=== PATIENT | male | born 1985 | race Caucasian/White ===

== ENCOUNTER 2016-10-27 16:27 | Emergency (ER) | payer BC, OTHER ==
--- NOTE | 2016-10-27 16:39 | PDOC ---
History of Present Illness - General History Source: Patient Exam Limitations: No Limitations - History of Present Illness Initial Comments: 10/27/16 17:59 The patient is a 31 year old male, with no significant past medical history, who presents to the emergency department with 2 days of nausea, vomiting, diarrhea. The patient reports that his nausea started yesterday and so far today he has had about 20 episodes of vomiting and 5-6 episodes of diarrhea. He denies any blood present in the vomit or stool, and describes the diarrhea as watery in nature. He denies any sick contacts or recent travel, but does state that he [place] in an [place]. He denies chest pain, abdominal pain, shortness of breath, headache and dizziness. He denies fever, chills, and constipation. He denies dysuria, frequency, urgency and hematuria. Allergies: None Past surgical history: None Social history: Never smoked, does not drink <Linda Vargas - Last Filed: 10/27/16 17:59> <Trenton Washington - Last Filed: 10/27/16 18:51> - General Chief Complaint: Vomiting/Diarrhea Stated Complaint: NAUSEA, VOMITING, DIARRHEA Time Seen by Provider: 10/27/16 16:32 Past History <Linda Vargas - Last Filed: 10/27/16 17:59> - Immunization History Td Vaccination: Yes TDAP Vaccination: No Immunization Up to Date: Yes - Psycho/Social/Smoking Cessation Hx Anxiety: No Suicidal Ideation: No Smoking Status: No Smoking History: Never smoked Number of Cigarettes Smoked Daily: 0 Hx Alcohol Use: No Drug/Substance Use Hx: No Substance Use Type: None <Trenton Washington - Last Filed: 10/27/16 18:51> - Past Medical History Allergies/Adverse Reactions: Allergies Allergy/AdvReac Type Severity Reaction Status Date / Time No Known Allergies Allergy Unverified 04/25/15 10:42 Home Medications: Ambulatory Orders Ondansetron [Zofran -] 4 mg PO TID PRN #14 tablet 10/27/16 Review of Systems - Review of Systems Able to Perform ROS?: Yes Comments:: 10/27/16 17:59 CONSTITUTIONAL: No reported: Fever, Chills, Diaphoresis, Generalized Weakness, Malaise, Loss of Appetite HEENT: No reported: Rhinorrhea, Nasal Congestion, Throat Pain, Throat Swelling, Difficulty Swallowing, Mouth Swelling, Ear Pain, Eye Pain, Visual Changes CARDIOVASCULAR: No reported: Chest Pain, Syncope, Palpitations, Irregular Heart Rate, Lightheadedness, Peripheral Edema RESPIRATORY: No reported: Cough, Shortness of Breath, SOB with Exertion, Orthopnea, Wheezing , Stridor, Hemoptysis GASTROINTESTINAL: +Nausea, +Vomiting, +Diarrhea No reported: Abdominal pain, Abdominal Distension, Constipation, Melena, Hematochezia GENITOURINARY: No reported: Dysuria, Frequency, Urgency, Hesitancy, Flank Pain, Genital Pain MUSCULOSKELETAL: No reported: Myalgia, Arthralgia, Joint Swelling, Back pain, Neck Pain SKIN: No reported: Rash, Itching, Pallor HEMATOLOGIC/IMMUNOLOGIC: No reported: Easy Bleeding, Easy Bruising, Lymphadenopathy, Frequent infections ENDOCRINE: No reported: Unexplained Weight Gain, Unexplained Weight Loss, Heat Intolerance , Cold Intolerance NEUROLOGIC: No reported: Headache, Focal Weakness, Paresthesias, Vertigo, Lightheadedness, Unsteady Gait, Seizure, Mental Status Changes, Incontinence PSYCHIATRIC: No reported: Anxiety, Depression <Linda Vargas - Last Filed: 10/27/16 17:59> *Physical Exam - Vital Signs Last Vital Signs Temp Pulse Resp BP Pulse Ox 98.8 F 102 H 16 127/83 97 10/27/16 16:28 10/27/16 16:28 10/27/16 16:28 10/27/16 16:28 10/27/16 16:28 - Physical Exam Comments: 10/27/16 18:00 GENERAL: The patient is awake, alert, and fully oriented, Nontoxic - in no acute distress. HEAD: Normocephalic, atraumatic. EYES: extraocular movements intact, sclera anicteric, conjunctiva clear. ENT: +Dry mucous membranes. Normal voice NECK: Normal range of motion, No JVD LUNGS: Breath sounds equal, clear to auscultation bilaterally. No wheezes, no rhonchi, no rales. HEART: Regular rate and rhythm, normal S1 and S2 without murmur, rub or gallop. ABDOMEN: Soft, nontender, normoactive bowel sounds. No guarding, no rebound. No masses. No CVA tenderness EXTREMITIES: Normal range of motion, no edema. No clubbing or cyanosis. No cords , erythema, or tenderness. NEUROLOGICAL: No facial asymmetry, Normal speech, normal gait. PSYCH: Normal mood, normal affect. SKIN: Warm, Dry, normal turgor. <Linda Vargas - Last Filed: 10/27/16 17:59> - Vital Signs Last Vital Signs Temp Pulse Resp BP Pulse Ox 98.8 F 102 H 16 127/83 97 10/27/16 16:28 10/27/16 16:28 10/27/16 16:28 10/27/16 16:28 10/27/16 16:28 <Trenton Washington - Last Filed: 10/27/16 18:51> ED Treatment Course - LABORATORY CBC & Chemistry Diagram: 10/27/16 17:00 10/27/16 17:00 - ADDITIONAL ORDERS Additional order review: Laboratory Results 10/27/16 17:00 Sodium 135 L Potassium 4.7 Chloride 102 Carbon Dioxide 25 Anion Gap 8 BUN 17 D Creatinine 1.1 D Creat Clearance w eGFR > 60 Random Glucose 97 Calcium 9.6 Total Bilirubin 0.8 D AST 19 D ALT 18 Alkaline Phosphatase 62 D Total Protein 8.3 Albumin 4.9 10/27/16 17:00 RBC 5.73 H MCV 85.4 MCHC 34.2 RDW 12.6 MPV 8.6 Neutrophils % 81.6 Lymphocytes % 7.0 L D Monocytes % 8.7 Eosinophils % 2.0 Basophils % 0.7 - Medications Given in the ED: ED Medications Discontinued Medications Generic Name Dose Route Start Last Admin Trade Name Freq PRN Reason Stop Dose Admin Sodium Chloride 1,000 mls @ 1,000 mls/hr 10/27/16 16:44 10/27/16 17:00 Normal Saline - IV 10/27/16 17:43 1,000 mls/hr .Q1H ONE Administration Ondansetron HCl 4 mg 10/27/16 16:44 10/27/16 17:05 Zofran Injection IVPB 10/27/16 16:45 4 mg ONCE ONE Administration <Linda Vargas - Last Filed: 10/27/16 17:59> - LABORATORY CBC & Chemistry Diagram: 10/27/16 17:00 10/27/16 17:00 <Trenton Washington - Last Filed: 10/27/16 18:51> Medical Decision Making - Medical Decision Making 10/27/16 16:44 31y M presents with n/v/d for 2 days wo associated abd pain. on exam pt has mild dry mmm w/abd tenderness vuitals noted for mild tachycardia suspect age w/ dehydration will ck basic labs fluids/zofran will reassess A portion of this note was documented by scribe services under my direction. I have reviewed the details of the note, within reason, and agree with the documentation with the following case summary and management plan written by me 10/27/16 18:01 labs reviewed noted for mild leukocytosis w/o left shift lytes wnl pt feeling improved after hydration will PO challenge the pt no abd tenderness on repeat exam considered appy, but without any focal tenderness, do not suspect this is the case. discused return precautions with th epatientincluding any abdominal pain, fever/chills or persistent vomiting. suspect his sypmtoms are secondary to gastroenteritis 10/27/16 18:39 pt feeling improved able to toerate PO challenge will dc the pt with pmd fu will give rx for zofran return preautions were dsicussed I discussed the physical exam findings, ancillary test results and final diagnoses with the patient. I answered all of the patient's questions. The patient was satisfied with the care received and felt comfortable with the discharge plan and treatment plan. The patient will call their primary care physician within 24 hours to arrange follow-up and will return to the Emergency Department with any new, persistent or worsening symptoms. 10/27/16 18:40 <Trenton Washington - Last Filed: 10/27/16 18:51> *DC/Admit/Observation/Transfer - Attestations Scribe Attestion: 10/27/16 18:00 Documentation prepared by PROSPER Gutiérrez, acting as medical records secretary for Trenton Washington MD. <Linda Vargas - Last Filed: 10/27/16 17:59> - Discharge Dispostion Admit: No <Trenton Washington - Last Filed: 10/27/16 18:51> Diagnosis at time of Disposition: Gastroenteritis - Discharge Dispostion Disposition: HOME Condition at time of disposition: Improved - Prescriptions Prescriptions: Ondansetron [Zofran -] 4 mg PO TID PRN #14 tablet PRN Reason: Nausea - Referrals Referrals: [facility] [Provider Group] - Patient Instructions Printed Discharge Instructions: DI for Viral Gastroenteritis -- Adult Additional Instructions: Return to the emergency department immediately with ANY new, persistent or worsening symptoms including abdominal pain, fevers, inability to tolerate oral intake, chest pain, shortness of breath or any other concerns. Stay well hydrated. You MUST call and follow up with your doctor tomorrow. Your emergency department visit is not complete without a followup with your doctor for reevaluation. Please make sure your doctor reviews the results of your emergency evaluation. Print Language: GERMAN - Post Discharge Activity Work/School Note: Back to Work
[2016-10-27 16:41] VITALS: BP 127/83; PULSE 102; TEMP 98.8; BMI 27.1
[2016-10-27] MEDS ORDERED: SODIUM CHLORIDE 1,000 ML IV ONE ×2 (16:44→18:02)
[2016-10-27] MEDS ORDERED: ONDANSETRON 4 MG/2 ML VIAL IVPB ONE (16:44)
[2016-10-27] MEDS ORDERED: ONDANSETRON 4 MG/2 ML VIAL ONE (17:03)
[2016-10-27 17:32] LABS: BASOPHIL 0.7 % (0-2.0); MCH 29.2 pg (25.7-33.7); MCHC 34.2 g/dl (32.0-35.9); MEAN CELL VOLUME 85.4 fl (80-96); MEAN PLT VOLUME 8.6 fl (7.5-11.1); NEUTROPHILS 81.6 % (42.8-82.8); PLATELET COUNT 249 K/MM3 (134-434); RDW 12.6 % (11.9-15.9); WHITE BLOOD COUNT 11.2 K/mm3 (4.0-10.8)
[2016-10-27 17:45] LABS: ALBUMIN 4.9 g/dl (3.5-5.0); ALK PHOS 62 U/L (32-92); ANION GAP 8 (8-16); BILIRUBIN,TOTAL 0.8 mg/dl (0.2-1.0); CALCIUM 9.6 mg/dl (8.4-10.2); CO2 25 mmol/L (22-28); CREATININE 1.1 mg/dl (0.6-1.3); GLUCOSE,RANDOM 97 mg/dl (74-106); SGOT/AST 19 U/L (10-42); SGPT/ALT 18 U/L (10-40); TOT PROT 8.3 g/dl (6.4-8.3)
== END 2016-10-27 19:06 | disposition home or self-care (01) ==
LOC: FER 16:27
PROC: 3E0337Z Introduction of Electrolytic and Water Balance Substance into Peripheral Vein, Percutaneous Approach (ICD-10-PCS; principal; 2016-10-27)
PROC: 3E033GC Introduction of Other Therapeutic Substance into Peripheral Vein, Percutaneous Approach (ICD-10-PCS; 2016-10-27)
DX: K52.9 Noninfective gastroenteritis and colitis, unspecified (principal)
CPT/HCPCS: 36415; 80053; 85025; 99282-25

== ENCOUNTER 2017-08-10 02:17 | Emergency (ER) | payer BC ==
--- NOTE | 2017-08-10 02:21 | PDOC ---
History of Present Illness - General Chief Complaint: Choking Sensation Stated Complaint: FEELS SOMETHING IN HIS THROAT Time Seen by Provider: 08/10/17 02:20 - History of Present Illness Initial Comments: 08/10/17 02:45 This 32-year-old man with no significant past medical history presents with a one-day history of throat pain. He awakened yesterday with discomfort with swallowing. Throughout the day, discomfort became somewhat more severe. Patient took 1 dose of Mucinex but no other medication. Tonight, he had sensation of pressure in his throat and not being able to swallow secondary to the pain. The patient's sons, 4 and 7 years old have recently had febrile illnesses. Patient is unsure whether they had pharyngitis (viral or strep). Patient himself has never had strep pharyngitis. There has been no cough/runny nose/myalgias or gastrointestinal symptoms Past History - Past Medical History Allergies/Adverse Reactions: Allergies Allergy/AdvReac Type Severity Reaction Status Date / Time No Known Allergies Allergy Unverified 04/25/15 10:42 Home Medications: Ambulatory Orders NK [No Known Home Medication] 08/10/17 - Immunization History Td Vaccination: Yes TDAP Vaccination: No Immunization Up to Date: Yes - Suicide/Smoking/Psychosocial Hx Smoking Status: No Smoking History: Never smoked Number of Cigarettes Smoked Daily: 0 Hx Alcohol Use: No Drug/Substance Use Hx: No Substance Use Type: None Review of Systems - Review of Systems Able to Perform ROS?: Yes Comments:: 12 point review of systems is negative except for what is noted in the history of present illness *Physical Exam - Physical Exam Comments: GENERAL: Adult male, alert and oriented 3, mildly anxious but in no acute distress HEAD: Normal with no signs of trauma. EYES: PERRLA, EOMI, sclera anicteric, conjunctiva clear. ENT: Ears normal, nares patent, oropharynx moderately erythematous without exudates or edema. Moist mucous membranes. NECK: Normal range of motion, supple without JVD, or masses. Bilateral mildly tender anterior cervical lymphadenopathy LUNGS: Breath sounds equal, clear to auscultation bilaterally. No wheezes, and no crackles. HEART:Regular rate and rhythm, normal S1 and S2 without murmur, rub or gallop. SKIN: Warm, Dry, normal turgor, no rashes or lesions noted. Medical Decision Making - Medical Decision Making This otherwise healthy 32-year-old man presents with increasing throat discomfort over the last 24 hours; patient states children had febrile illness over the last several days. The patient does not have known fever or other upper respiratory symptoms. No true shortness of breath/stridor/wheezing. Patient has had no edema of the lip or tongue. Exam as noted shows erythema of the pharynx with cervical lymphadenopathy. There is no evidence of airway compromise with no edema noted on visual exam; no stridor or wheezing present. Clinical presentation most consistent with acute pharyngitis, most likely viral in origin. Patient will be given ibuprofen 600 mg now (has not had anti-inflammatory medications since onset of his symptoms). He will be given instructions to continue anti-inflammatory medications or Tylenol as needed for throat discomfort/fever. Meanwhile, he should expect to follow-up with his general doctor within the next week. He should return to the ER. Severe, persistent pain or difficulty breathing/swallowing *DC/Admit/Observation/Transfer Diagnosis at time of Disposition: Acute pharyngitis Qualifiers: Pharyngitis/tonsillitis etiology: unspecified etiology Qualified Code(s): J02.9 - Acute pharyngitis, unspecified - Discharge Dispostion Disposition: HOME Condition at time of disposition: Stable - Referrals - Patient Instructions Printed Discharge Instructions: Sore Throat Additional Instructions: Rest; drink plenty of fluids Ibuprofen/naproxen/acetaminophen as needed for pain Return or see your doctor if you have persistent high fever or see white patches in your throat Return here if you have severe difficulty breathing or swallowing - Post Discharge Activity
[2017-08-10 02:22] VITALS: BP 136/78; PULSE 67; TEMP 98.4; BMI 28.7
[2017-08-10] MEDS ORDERED: IBUPROFEN 600 MG TABLET (FP) PO ONE ×2 (02:38→02:41)
== END 2017-08-10 02:45 | disposition home or self-care (01) ==
LOC: FER 02:17
DX: J02.9 Acute pharyngitis, unspecified (principal)
CPT/HCPCS: 99282-25

== ENCOUNTER 2017-11-09 10:20 | Emergency (ER) | payer BC ==
[2017-11-09] MEDS ORDERED: ACETAMINOPHEN 325 MG TABLET (FP) PO ONE (11:01)
[2017-11-09] MEDS ORDERED: ACETAMINOPHEN 325 MG TABLET (FP) ONE (11:05)
[2017-11-09 11:08] VITALS: BP 127/64; PULSE 70; TEMP 99.3; BMI 29.4
--- NOTE | 2017-11-09 11:10 | PDOC ---
Attending Attestation - Resident Resident Name: Chapincito Wang - ED Attending Attestation I have performed the following: I have examined & evaluated the patient, The case was reviewed & discussed with the resident, I agree w/resident's findings & plan, Exceptions are as noted - HPI HPI: 32 yo M no significant PMH presents with low back pain. He states that he tripped and twisted his back yesterday. He had some pain at the time, but stated that he figured it would get better if he slept it off. This morning he woke up with worse pain. He took ibuprofen 1000mg and did not improve, so presented for evaluation. No weakness, numbness. Pain is B/L low back and does not radiate. - Physicial Exam PE: GENERAL: Awake, alert, and fully oriented, in no acute distress HEAD: No signs of trauma EYES: PERRLA, EOMI, sclera anicteric, conjunctiva clear ENT: Auricles normal inspection, hearing grossly normal, nares patent, oropharynx clear without exudates. Moist mucosa EXTREMITIES: Normal range of motion, no edema. No clubbing or cyanosis. No cords, erythema, or tenderness NEUROLOGICAL: Cranial nerves II through XII grossly intact. Normal speech, normal gait SKIN: Warm, Dry, normal turgor, no rashes or lesions noted. SPINE: No midline tenderness. +Soft tissue tenderness to B/L lumbar paraspinal areas. No stepoffs. No CVAT. - Medical Decision Making Pt with lumbar strain due to twisting injury. No signs of bony injury, no imaging indicated at this time. Recommended capsaicin patches, ibuprofen ( however, counseled him NOT to take large doses as with this morning), muscle relaxer, and warm compresses. Stable for DC home.
--- NOTE | 2017-11-09 11:11 | PDOC ---
History of Present Illness - General Chief Complaint: Back Pain Stated Complaint: BACK PAIN Time Seen by Provider: 11/09/17 10:57 History Source: Patient Exam Limitations: No Limitations - History of Present Illness Initial Comments: 11/09/17 11:06 Patient is a 32M with no significant medical history here today complaining of back pain that started last night after tripping and twisting his back. Denies falling, denies head trauma, denies LOC. Denies fevers, chills, nausea, vomiting. Denies IVDU. Denies urinary incontinence/retention, denies saddle anesthesia. Pain is located mostly on the lower left aspect of his back. Past History - Past Medical History Allergies/Adverse Reactions: Allergies Allergy/AdvReac Type Severity Reaction Status Date / Time No Known Allergies Allergy Verified 11/09/17 10:55 Home Medications: Ambulatory Orders Methocarbamol [Robaxin -] 500 mg PO TID #21 tablet 11/09/17 COPD: No - Immunization History Td Vaccination: Yes TDAP Vaccination: No Immunization Up to Date: Yes - Suicide/Smoking/Psychosocial Hx Smoking Status: No Smoking History: Never smoked Number of Cigarettes Smoked Daily: 0 Hx Alcohol Use: No Drug/Substance Use Hx: No Substance Use Type: None Review of Systems - Review of Systems Comments:: 11/09/17 11:08 GENERAL/CONSTITUTIONAL: No fever or chills. No weakness. HEAD, EYES, EARS, NOSE AND THROAT: No change in vision. No sore throat. CARDIOVASCULAR: No chest pain or shortness of breath RESPIRATORY: No cough, wheezing, or hemoptysis. GASTROINTESTINAL: No nausea, vomiting, diarrhea or constipation. GENITOURINARY: No dysuria, frequency, or change in urination. MUSCULOSKELETAL: No joint or muscle swelling or pain. No neck pain. +back pain. SKIN: No rash NEUROLOGIC: No headache, vertigo, loss of consciousness, or change in strength/ sensation. ENDOCRINE: No increased thirst. No abnormal weight change HEMATOLOGIC/LYMPHATIC: No anemia, easy bleeding, or history of blood clots. ALLERGIC/IMMUNOLOGIC: No hives or skin allergy. *Physical Exam - Vital Signs Last Vital Signs Temp Pulse Resp BP Pulse Ox 99.3 F 70 16 127/64 98 11/09/17 10:54 11/09/17 10:54 11/09/17 10:54 11/09/17 10:54 11/09/17 10:54 - Physical Exam Comments: 11/09/17 11:08 GENERAL: Awake, alert, and fully oriented, in no acute distress BACK: +left sided lower back tenderness, no midline tenderness, no signs of trauma HEAD: No signs of trauma, normocephalic, atraumatic EYES: PERRLA, EOMI, sclera anicteric, conjunctiva clear ENT: Auricles normal inspection, hearing grossly normal, nares patent, oropharynx clear without exudates. Moist mucosa NECK: Normal ROM, supple, no lymphadenopathy, JVD, or masses LUNGS: No distress, speaks full sentences, clear to auscultation bilaterally HEART: Regular rate and rhythm, normal S1 and S2, no murmurs, rubs or gallops, peripheral pulses normal and equal bilaterally. ABDOMEN: Soft, nontender, normoactive bowel sounds. No guarding, no rebound. No masses EXTREMITIES: Normal inspection, Normal range of motion, no edema. No clubbing or cyanosis. NEUROLOGICAL: Cranial nerves II through XII grossly intact. Normal speech, normal gait, no focal sensorimotor deficits SKIN: Warm, Dry, normal turgor, no rashes or lesions noted. Medical Decision Making - Medical Decision Making 11/09/17 11:09 Patient is a 32M here with back pain. Requesting work note, vital signs normal and stable, no red flags. Patient took 1000mg of ibuprofen. Instructed on proper dosing of NSAIDs. Given tylenol. Will prescribe robaxin for home. *DC/Admit/Observation/Transfer Diagnosis at time of Disposition: Back pain - Discharge Dispostion Disposition: HOME Condition at time of disposition: Good Decision to Admit order: No - Prescriptions Prescriptions: Methocarbamol [Robaxin -] 500 mg PO TID #21 tablet - Referrals Referrals: Mauro Cortes [Primary Care Provider] - - Patient Instructions - Post Discharge Activity Forms/Work/School Notes: Back to Work
== END 2017-11-09 11:51 | disposition home or self-care (01) ==
LOC: FER 10:20
DX: M54.5 Low back pain (principal); W18.40XA Slipping, tripping and stumbling without falling, unspecified, initial encounter; Y93.9 Activity, unspecified; Y92.9 Unspecified place or not applicable
CPT/HCPCS: 99282-25

== ENCOUNTER 2019-05-23 03:49 | Emergency (ER) | payer BC ==
--- NOTE | 2019-05-23 03:54 | PDOC ---
History of Present Illness - General Chief Complaint: Injury Stated Complaint: RING STUCK ON FINGER Time Seen by Provider: 05/23/19 03:52 History Source: Patient Exam Limitations: No Limitations - History of Present Illness Initial Comments: 05/23/19 04:06 This is a 33-year-old male who comes in complaining that his ring is stuck on his finger and his finger is swollen. Patient denies any trauma. Or infection of the finger. Patient denies any other complaints. Allergies: as per nursing notes Past Medical History: none Social history: Lives with family. No smoking. No alcohol. No illicit drugs. Surgical history: None General: No fevers or chills, no weakness, no weight loss HEENT: No change in vision. No sore throat,. No ear pain CardioVascular: no chest discomfort. No shortness of breath Respiratory:No cough, or wheezing. Gastrointestinal: no nausea, vomiting, diarrhea or constipation, No rectal bleeding Genitourinary: No dysuria, hematuria, or frequency Musculoskeletal: Ring finger swollen Neurologic: No headache, vertigo, dizziness or loss of consciousness Psychiatric: nor depression Skin: No rashes or easy bruising Endocrine: no increased thirst or abnormal weight change Allergic: no skin or latex allergy All other systems reviewed and normal GENERAL: The patient is awake, alert, and fully oriented, in no acute distress. HEAD: Normal with no signs of trauma. EYES: Pupils equal, round and reactive to light, extraocular movements intact, sclera anicteric, conjunctiva clear. EXTREMITIES: Finger is mildly swollen and ring is unable to be removed. NEUROLOGICAL: Normal speech, normal gait. PSYCH: Normal mood, normal affect. SKIN: Warm, Dry, normal turgor, no rashes or lesions noted. Ring was cut off without difficulty and patient discharged Past History - Past Medical History Allergies/Adverse Reactions: Allergies Allergy/AdvReac Type Severity Reaction Status Date / Time No Known Allergies Allergy Verified 11/09/17 10:55 Home Medications: Ambulatory Orders NK [No Known Home Medication] 05/23/19 COPD: No - Immunization History Td Vaccination: Yes TDAP Vaccination: No Immunization Up to Date: Yes - Psycho Social/Smoking Cessation Hx Smoking Status: No Smoking History: Never smoked Number of Cigarettes Smoked Daily: 0 Hx Alcohol Use: No Drug/Substance Use Hx: No Substance Use Type: None Trauma Specific PMHX - Complaint Specific PMHX Back Injury: No Neck Injury: No Discharge - Discharge Information Problems reviewed: Yes Clinical Impression/Diagnosis: Foreign body finger Condition: Stable Disposition: HOME - Admission No - Follow up/Referral - Patient Discharge Instructions Additional Instructions: Return to the emergency department immediately with ANY new, persistent or worsening symptoms. Continue any medications as previously prescribed by your physician. You should follow up with your primary doctor as soon as possible regarding today's emergency department visit. . Please make sure your doctor reviews the results of your emergency evaluation. Thank you for coming to the Emergency Department today for your care. It was a pleasure to see you today. Please note that your evaluation is INCOMPLETE until you follow-up with your doctor. - Post Discharge Activity
[2019-05-23 03:55] VITALS: BP 126/67; PULSE 90; TEMP 98.4; BMI 25.5
== END 2019-05-23 03:56 | disposition home or self-care (01) ==
LOC: FER 03:49
DX: S60.459A Superficial foreign body of unspecified finger, initial encounter (principal)
CPT/HCPCS: 99282-25

== ENCOUNTER 2020-05-04 11:53 | Emergency (ER) | payer OTHER, BC ==
[2020-05-04 12:00] VITALS: TEMP 98.4; BMI 28.7
[2020-05-04] MEDS ORDERED: ACETAMINOPHEN 500 MG TABLET (FP) PO ONE (12:23)
[2020-05-04] MEDS ORDERED: ACETAMINOPHEN 325 MG TABLET (FP) ONE (12:28)
[2020-05-04] MEDS ORDERED: KETOROLAC TROMETHAMINE 60 MG/2 ML VIAL IM ONE (14:27)
[2020-05-04] MEDS ORDERED: CYCLOBENZAPRINE HCL 10 MG TABLET (FP) ONE (14:47)
[2020-05-04] MEDS ORDERED: KETOROLAC TROMETHAMINE 60 MG/2 ML VIAL ONE (14:48)
[2020-05-04] MEDS ORDERED: oxyCODONE HCL 5 MG TABLET PO ONE (15:58)
[2020-05-04] MEDS ORDERED: CYCLOBENZAPRINE HCL 5 MG TABLET PO ONE (16:13)
[2020-05-04] MEDS ORDERED: oxyCODONE HCL 5 MG TABLET ONE (16:28)
[2020-05-04 17:42] VITALS: BP 124/86; PULSE 76
[2020-05-05] MEDS ORDERED: CYCLOBENZAPRINE HCL 5 MG TABLET PO ONE (14:28)
== END 2020-05-04 18:57 | disposition home or self-care (01) ==
LOC: FER 11:53
PROC: 3E0233Z Introduction of Anti-inflammatory into Muscle, Percutaneous Approach (ICD-10-PCS; principal; 2020-05-04)
DX: M79.601 Pain in right arm (principal); M25.511 Pain in right shoulder; M25.561 Pain in right knee
CPT/HCPCS: 71101-TC-RT-FY; 73030-TC-LT-FY; 73030-TC-RT-FY; 73060-TC-RT-FY; 73070-TC-RT-FY; 73090-TC-RT-FY; 73110-TC-RT-FY; 73130-TC-RT-FY; 73200-TC-RT; 73562-TC-RT-FY; 99285-25

== ENCOUNTER 2021-09-04 19:44 | Emergency (ER) | payer BC ==
[2021-09-04 19:53] VITALS: BP 128/77; TEMP 99.3; BMI 27.8
[2021-09-04] MEDS ORDERED: ACETAMINOPHEN 1000 MG/100 ML BAG IVPB ONE (20:26)
[2021-09-04] MEDS ORDERED: SODIUM CHLORIDE 1,000 ML IV STA (20:26)
[2021-09-04] MEDS ORDERED: ACETAMINOPHEN INJECTION 100 ML IVPB ONE (20:39)
[2021-09-04 20:42] LABS: HEMATOCRIT 43.2 % (35.4-49); HEMOGLOBIN 15.4 G/dL (11.7-16.9); MCH 30.4 pg (25.7-33.7); MCHC 35.6 g/dl (32.0-35.9); MEAN CELL VOLUME 85.4 fl (80-96); MEAN PLT VOLUME 8.5 fl (7.5-11.1); PLATELET COUNT 239.4 10^3/uL (134-434); RBC 5.06 10^6/uL (4.00-5.60); RDW 13.8 % (11.9-15.9); WHITE BLOOD COUNT 11.9 10^3/uL (4.0-10.8)
[2021-09-04 20:51] LABS: PLATELET ESTIMATE ADEQUATE
[2021-09-04 21:03] LABS: ALBUMIN 4.6 g/dl (3.4-5.0); CALCIUM 9.5 mg/dl (8.5-10); CREATININE 1.1 mg/dl (0.55-1.3); TOT PROT 7.7 g/dl (6.4-8.2)
[2021-09-04 22:41] VITALS: PULSE 90
== END 2021-09-04 22:58 | disposition home or self-care (01) ==
LOC: FER 19:44
PROC: 3E033GC Introduction of Other Therapeutic Substance into Peripheral Vein, Percutaneous Approach (ICD-10-PCS; principal; 2021-09-04)
DX: J20.9 Acute bronchitis, unspecified (principal)
CPT/HCPCS: 36415; 71045-TC-FY; 80053; 85027; 93005; 99285-25